=== PATIENT | female | born 1955 | race Asian ===

== ENCOUNTER 2016-12-24 12:21 | Inpatient (IN) | payer OTHER ==
[2016-12-24] MEDS ORDERED: Ondansetron HCl/PF 4 MG/2 ML Vial ONE ×2 (12:29→13:50)
[2016-12-24 12:42] LABS: #Basophils 0.1 thou/uL (0.0-0.2); #Lymphocytes 1.6 thou/uL (1.20-3.40); #Monocytes 0.6 thou/uL (0.11-0.59); #Neutrophils 12.6 thou/uL (1.40-6.50); %Basophils 0.7 % (0.0-1.0); %Eosinophils 0.1 % (0.0-10.0); %Lymphocytes 10.8 % (21.0-51.0); %Monocytes 3.8 % (0.0-10.0); Hematocrit 39.5 % (36.0-47.0); Mean Platelet Volume 5.9 fL (7.4-10.4); Red Blood Cell (RBC) Count 4.62 mill/uL (4.20-5.40); White Blood Cell (WBC) Count 14.9 thou/uL (4.8-10.8)
[2016-12-24 12:58] LABS: ALT (SGPT) 14 U/L (8-55); AST (SGOT) 23 U/L (5-34); Alkaline Phosphatase 70 U/L (40-150); Anion Gap 15 mmol/L (10-20); BUN (Urea Nitrogen) 12 mg/dL (9.8-20.1); Bilirubin, Total 0.5 mg/dL (0.2-1.2); Calc. Creatinine Clearance 0 mL/min (70-130); Calcium 9.2 mg/dL (7.8-10.44); Carbon Dioxide 25 mmol/L (22-29); Chloride 105 mmol/L (98-107); Estimated GFR-MDRD 82; Globulin 2.8 g/dL (2.4-3.5); Lipase 22 U/L (8-78); Protein, Total 7.1 g/dL (6.0-8.3)
[2016-12-24 14:05] LABS: Bilirubin Negative (Negative); Blood, Urine Trace (Negative); Glucose, Urine (Dipstick) Negative (Negative); Ketone, Urine 40 mg/dL (Negative); Nitrite Negative (Negative); Protein, Urine (Dipstick) 30 mg/dL (Neg-Trace); Urobilinogen 0.2 mg/dL (0.2-1.0)
[2016-12-24 14:08] LABS: Bacteria/HPF 2+ HPF (None Seen); RBC/HPF 0-3 HPF (0-3); WBC/HPF 0-3 HPF (0-3)
[2016-12-24 14:10] LABS: Hyaline Casts/LPF 0-3 HYALINE CAST LPF (0-3 Hyaline)
[2016-12-24] MEDS ORDERED: Promethazine HCl 25 MG/ML VIAL ONE (15:03)
[2016-12-24 15:27] LABS: Troponin I Less than 0.010 ng/mL (< 0.028)
--- NOTE | 2016-12-24 16:06 | RAD ---
RADIOGRAPH CHEST 1 VIEW RADIOGRAPH ABDOMEN 2 VIEWS: Date: 12/24/16 HISTORY: 61-year-old female with nausea and emesis with mild diarrhea. FINDINGS: The visualized lung wright are grossly clear. No evidence of pneumothorax or pneumoperitoneum. No ca rdiomegaly. Lateral costophrenic angles are sharp. Ectasia and tortuosity of thoracic aorta. There is a moderate amount of gas and fluid in the stomach, with air fluid level. Otherwise, there i s complete absence of bowel gas. Laminectomy defects at L4-5 and L5-S1. No evidence of organomegaly. IMPRESSION: 1. Complete absence of bowel gas makes it difficult to evaluate the intestines. 2. No acute pulmonary findings. 3. Ectasia and tortuosity of thoracic aorta. 4. Status post lower lumbar laminectomies. RANDOLPH [] POS: [facility]
--- NOTE | 2016-12-24 16:20 | CT ---
CT BRAIN NONCONTRAST: 12/24/16 HISTORY: 61-year-old male with headache. FINDINGS: The ventricles are normal in size and configuration. There is no midline shift or any other mass ef fect. There is no evidence of acute intracranial hemorrhage, large cortical infarct, or extraaxial fluid collection. The [place] matter /white matter differentiation is maintained. The calvarium is in tact. The tympanomastoid cavities, and the upper portions of the paranasal sinuses included in thes e images, are grossly clear. IMPRESSION: Normal. jn [] POS: PATTI
[2016-12-24] MEDS ORDERED: Ondansetron ODT 4 MG TAB SL PRN (16:44)
[2016-12-24] MEDS ORDERED: Ondansetron HCl/PF 4 MG/2 ML Vial IVP PRN ×2 (16:44→17:07)
--- NOTE | 2016-12-24 16:44 | CT ---
EXAM: ABDOMEN CT WITHOUT CONTRAST PELVIC CT WITHOUT CONTRAST 12/24/16 HISTORY: Nausea and vomiting after having coffee creamer. COMPARISON: None. TECHNIQUE: Abdomen and pelvic CT are performed without IV contrast. Coronal reformatted images are submitted f or interpretation. FINDINGS: There are ground glass opacities in the lung bases which are nonspecific. Heart size is normal. No s ignificant pericardial fluid. The visualized aorta has a normal caliber. No periaortic fat stranding . No gastrohepatic, retrocrural or periportal lymphadenopathy. No mesenteric mass, lymphadenopathy, or free air. There is stranding of the abdominal mesentery with a small amount of fluid in both pericolic gutters. Nonspecific left periaortic lymph node. Largest lymph node measures 0.9 x 0.7 cm. Limited evaluation of the solid organs due to lack of IV contrast. No solid organ abnormality. Gallb ladder is unremarkable. Limited evaluation of the alimentary canal due to lack of oral contrast. multiple normal caliber sma ll bowel loops. Ileocecal junction is normal. Normal caliber appendix. Colon is decompressed. Umbilical hernia containing mesenteric fat is noted. Bilaterally, no hydronephrosis, nephrolithiasis or perinephric fat stranding. Bilateral ureters have a normal caliber. No hydroureter, periureteral fat stranding or ureterolithiasis. PELVIC CT: No mass, lymphadenopathy, free air or free fluid. Urinary bladder is unremarkable. Posterior decompr ession changes in the lower lumbar spine are identified. IMPRESSION: 1. Normal caliber appendix. 2. No evidence of nephrolithiasis or obstructive uropathy. 3. Nonspecific stranding of the abdominal mesentery and a trace amount of fluid in both pericol ic gutters. Correlate for mesenteritis. POS: [facility]
[2016-12-24] MEDS ORDERED: Dextrose 5 %-0.45 % NaCl 1,000 ML IV SCH (16:45)
[2016-12-24 16:48] VITALS: BMI 20.1
[2016-12-24 17:46] LABS: Hematocrit 36.9 % (36.0-47.0)
--- NOTE | 2016-12-24 17:46 | HP ---
PRIMARY CARE PHYSICIAN: Destinee Paredes M.D. CHIEF COMPLAINT: Nausea and vomiting. HISTORY OF PRESENT ILLNESS: Mr. Bailey is a pleasant 61-year-old lady who was seen at [facility] following transfer from [facility]. She reports that today morning she went to [facility]. Her was parking the car and she went into [facility]. She then had a cup of coffee. Her had a cup of coffee as well. She reports t hat her cup had more creamer in it. Half an hour later, she started having nausea and vomiting. Sh e reports vomiting at least 10 times. She also reports that couple of times, she had small amount o f blood in the vomitus, this appears to have resolved. She reports irritation in her throat. She a lso reports generalized weakness. She also reports lightheadedness when she stands up and tries to walk. She denies any abdominal pain. She denies any fevers or chills. She denies any sick contact s. The following complete review of systems was negative, unless otherwise mentioned in the HPI or belo w: Constitutional: Weight loss or gain, sense of well-being, ability to conduct usual activities, exer cise tolerance. Skin/Breast: Rash, itching, changes in hair growth or loss, nail changes, breast lumps, tenderness, swelling, nipple discharge. Eyes: Vision, double vision, tearing, blind spots, pain. ENT/Mouth: Headaches (location, time of onset, duration, precipitating factors), vertigo, lighthead edness, injury. Vision, double vision, tearing, blind spots, pain, nose bleeding, colds, obstruction , discharge, dental difficulties, gingival bleeding, dentures, neck stiffness, pain, tenderness, mas ses in thyroid or other areas. Cardiovascular: Precordial pain, substernal distress, palpitations, syncope, dyspnea on exertion, o rthopnea, nocturnal paroxysmal dyspnea, edema, cyanosis, hypertension, heart murmurs, varicosities, phlebitis, claudication. Respiratory: Pain, shortness of breath, wheezing, stridor, cough, hemoptysis, fever or night sweats . Gastrointestinal: Poor appetite, dysphagia, indigestion, abdominal pain, heartburn, eructation, radha sea, vomiting, hematemesis, jaundice, constipation, or diarrhea, abnormal stools (ashley-colored, yady y, bloody, greasy, foul smelling), flatulence, hemorrhoids, recent changes in bowel habits. Genitourinary: Urgency, frequency, dysuria, nocturia, hematuria, polyuria, oliguria, unusual (or ch ruddy in) color of urine, stones, hesitancy, change in size of stream, dribbling, acute retention or incontinence, libido, potency. Musculoskeletal: Pain, swelling, redness or heat of muscles or joints, limitation, of motion, muscu lar weakness, atrophy, cramps. Neurologic/Psychiatric: Convulsions, paralyses, tremor, incoordination, paraesthesias, difficulties with memory of speech, sensory or motor disturbances, or muscular coordination (ataxia, tremor), em otional problems, anxiety, depression, previous psychiatric care, unusual perceptions, hallucination s. Allergy/Immunologic: Skin rash, anemia, bleeding tendency, polydipsia, polyuria, intolerance to hea t or cold. PAST MEDICAL HISTORY: None. PAST SURGICAL HISTORY: Hysterectomy. FAMILY HISTORY: Her mother reportedly had brain surgery in [place]. SOCIAL HISTORY: The patient denies tobacco use, alcohol use or recreational drug use. ALLERGIES: No known drug allergies. CURRENT MEDICATIONS: She appears to be taking calcium supplements but is unable to remember the nam e. PHYSICAL EXAMINATION: GENERAL: On examination, Ms. Bailey is awake and alert, not in acute distress. VITAL SIGNS: Blood pressure is 118/73, pulse is 62. She is breathing at rate of 16 and saturating 97% on room air. She is afebrile. EYES: No scleral icterus, no conjunctival pallor. ENT: Dry mucosal membranes. I examined her oropharynx, there are no oropharyngeal erythema, exudat es or any oral lesions. NECK: Supple, nontender, normal range of movement. Trachea is midline. RESPIRATORY: Accessory muscles of breathing are not active. Chest wall movements are symmetric elmer aterally. LUNGS: Clear to auscultation without wheeze, rhonchi or crepitations. CARDIOVASCULAR: S1 and S2 are heard, regular. Peripheral pulses palpable. No carotid bruit, no pe ricardial rub. ABDOMEN: Soft, nontender, bowel sounds are heard, no hepatomegaly, no splenomegaly. NEUROLOGIC: Cranial nerves II-XII intact. Deep tendon reflexes are 2+. MUSCULOSKELETAL: Power is 5/5 in all 4 extremities. Normal range of movement at all major extremit y joints. LYMPHATIC: No cervical lymphadenopathy. SKIN: No rashes or subcutaneous nodules. PSYCHIATRIC: Normal mood, normal affect, patient is oriented to time, place, and person. LABORATORY DATA: Ms. Bailey's labs and investigations were reviewed. She has leukocytosis with 14, 900 white cells, of which 84.5% are neutrophils, normal hemoglobin, normal platelet count, unremarka ble comprehensive metabolic profile, normal lipase and normal troponin I. Urinalysis is positive fo r protein, ketones, trace amount of blood. She does have slightly elevated random fasting glucose l evel of 131. ASSESSMENT AND PLAN: Ms. Bailey is a pleasant 61-year-old lady who was seen at [facility]. Her problem list includes: 1. Nausea and vomiting: Etiology unclear, appears to have had some form of gastric irritation afte r drinking coffee with cream. She has improved clinically. She will be admitted to the hospital on observation status and observed overnight. She will receive p.r.n., Zofran. She will be started o n clear fluid diet for now. 2. Lightheadedness: Likely secondary to dehydration. We will check orthostatic vitals, will hydra te with intravenous fluids and observe. 3. Leukocytosis: No sign of infection at this time. We will check chest x-ray to rule out any asp iration. We will recheck CBC. 4. Blood in vomitus: Small amount, appears to have resolved, likely from pharyngeal irritation. W e will follow serial hemoglobins. If no recurrence, and if hemoglobin remains stable, she can follo w up with her primary care physician. 5. Protein and ketones in urine: This will probably need to be looked it as outpatient. Her blood sugar is slightly elevated, but she has normal bicarbonate and a normal anion gap. Many thanks for allowing me to participate in your patient's care. Please feel free to contact me w ith any questions or concerns. LEVEL OF RISK: Moderate. LEVEL OF COMPLEXITY: Moderate.
[2016-12-24] MEDS: Sodium Chloride 0.9% 1,000 ML IV SCH (17:49)
[2016-12-25 01:27] LABS: Hematocrit 36.4 % (36.0-47.0)
[2016-12-25] MEDS: Sodium Chloride 0.9% 1,000 ML IV SCH (04:02)
[2016-12-25 05:27] LABS: #Eosinphils 0.1 thou/uL (0.0-0.7); #Lymphocytes 2.6 thou/uL (1.20-3.40); #Monocytes 0.5 thou/uL (0.11-0.59); #Neutrophils 4.2 thou/uL (1.40-6.50); %Basophils 0.6 % (0.0-1.0); %Eosinophils 0.7 % (0.0-10.0); %Monocytes 6.9 % (0.0-10.0); Hematocrit 36.1 % (36.0-47.0); Mean Platelet Volume 6.4 fL (7.4-10.4); White Blood Cell (WBC) Count 7.3 thou/uL (4.8-10.8)
[2016-12-25 05:59] LABS: Anion Gap 8 mmol/L (10-20); BUN (Urea Nitrogen) 7 mg/dL (9.8-20.1); Calc. Creatinine Clearance 75 mL/min (70-130); Calcium 8.5 mg/dL (7.8-10.44); Carbon Dioxide 27 mmol/L (22-29); Chloride 111 mmol/L (98-107); Estimated GFR-MDRD Greater than 90
[2016-12-25 07:49] VITALS: TEMP 98.1
[2016-12-25] MEDS ORDERED: Enoxaparin Sodium 40 MG/0.4 ML SYRINGE SC SCH (09:00)
[2016-12-25] MEDS ORDERED: Meclizine HCl 25 MG TAB PO PRN (09:03)
[2016-12-25] MEDS ORDERED: Ondansetron ODT 4 MG TAB PO PRN (09:04)
[2016-12-25] MEDS ORDERED: Calcium Carbonate 500 MG ChewTAB PO PRN (09:04)
[2016-12-25] MEDS ORDERED: Senokot 8.6 MG TAB PO PRN (09:04)
[2016-12-25] MEDS ORDERED: Mag-Al 1200 mg/1200 mg/30 ML UDCUP PO PRN (09:04)
[2016-12-25] MEDS ORDERED: Acetaminophen 325 MG TAB PO PRN (09:04)
[2016-12-25 09:24] LABS: Magnesium 1.9 mg/dL (1.6-2.6)
[2016-12-25] MEDS ORDERED: cefTRIAXone\\ROCEPHIN 1 GM in Sodium Chloride 0.9% 100 ML IVPB SCH (10:00)
[2016-12-25] MEDS ORDERED: metroNIDAZOLE 500 MG in Premix Bag 1 BAG IVPB SCH (11:00)
[2016-12-25 11:56] VITALS: BP 114/68
--- NOTE | 2016-12-25 11:57 | CON ---
DATE OF CONSULTATION: 12/25/2016 HISTORY OF PRESENT ILLNESS: The patient is a 61-year-old female, who was in her normal state of health until yesterday when she developed severe nausea and vomiting after drinking a cup of coff ee. She reports she put a large amount of creamer in it and then within 10 minutes a large amount o f vomiting. Her drank some coffee as well, but did not have any problems. She is feeling w ell now. She is hungry. She has had no change in her bowel movement. She did not have any abdomin al pain. No fever or chills. No recent weight loss. No prior episodes of nausea and vomiting. PAST MEDICAL HISTORY: None. PAST SURGICAL HISTORY: Includes a hysterectomy. MEDICATIONS: Just [id number] medications. SOCIAL HISTORY: She does not smoke. Drinks occasional wine. ALLERGIES: No known medical allergies. FAMILY HISTORY: Negative for GI or liver disease. REVIEW OF SYSTEMS: Ten systems were reviewed and were negative except for above. PHYSICAL EXAMINATION: VITAL SIGNS: Shows a temperature 98.1, pulse 55, respiratory rate 16, blood pressure 120/65. HEENT: Unremarkable. NECK: Supple. CHEST: Clear. CARDIOVASCULAR: Regular rate and rhythm without murmurs or gallops. ABDOMEN: Soft, nontender without organomegaly or masses. RECTAL: Deferred. EXTREMITIES: Normal. NEUROLOGIC: Nonfocal. LABORATORY DATA: Shows a hemoglobin 11.9, hematocrit 36.1. Laboratory on admission was normal exce pt for a glucose of 130. Urinalysis shows 40 ketones, otherwise normal. Acute abdominal series jack ws no abnormalities. Abdominal pelvic CT without contrast showed nonspecific stranding in the abdom inal mesentery and trace amount of fluid in both paracolic gutters. ASSESSMENT: Acute onset nausea, vomiting -- resolved, suspect food poisoning. RECOMMENDATIONS: 1. Feeding trial for lunch. 2. If the patient tolerates feeding trial, she could be discharged.
--- NOTE | 2016-12-25 16:31 | DIS ---
DATE OF DISCHARGE: 12/25/2016 DISCHARGE DISPOSITION: Home. FOLLOWUP: Follow up with primary care physician, Dr. Destinee Paredes in 1 week. The patient was seen and examined on the day of discharge. Vital signs were reviewed. Nausea and v omiting has resolved. The patient is ambulating in the hallway. She tolerated regular diet. INPATIENT DRIER AND EVAPORATOR OPERATOR: Gastroenterology, Dr. Reinaldo Cerna. DISCHARGE MEDICATIONS: 1. Meclizine as needed. 2. Protonix 40 mg daily. 3. Vitamin D3 of 1000 units daily. ALLERGIES: No known drug allergies. BRIEF HOSPITAL COURSE: Patient is a 61-year-old female who presented to the emergency room with kari den onset of nausea and vomiting. Abdominal CT was consistent with nonspecific stranding of the abd ominal mesentery and trace amount of fluid in both the paracolic gutters. There was a question of m esenteritis. CT scan of the brain was negative for acute findings. She was started on IV fluids. Due to some questionable vertigo, she also received meclizine that also helped with her symptoms. S he was able to tolerate regular diet. The patient was evaluated by Gastroenterology and has been cl eared for discharge. FINAL DIAGNOSES: 1. Intractable nausea and vomiting of unclear etiology, suspected peripheral vertigo. 2. Leukocytosis unlikely to be infectious. 3. Dehydration. 4. Questionable mesenteritis on the CT, less likely per GI, abdominal exam is benign. Plan of care was discussed with the patient and the family at the bedside. They stated ashlie artis
[2016-12-25] MEDS ORDERED: Famotidine 20 MG TAB PO SCH (21:00)
== END 2016-12-25 15:50 | disposition home or self-care (01) | DRG 149 ==
LOC: SCSER 12:21 → 2SW 16:35 → OBSVTOIN 16:35
PROVIDERS: ADMIT Internal Medicine; ATTEND Internal Medicine
DX: H81.399 Other peripheral vertigo, unspecified ear (principal); E86.0 Dehydration; R11.2 Nausea with vomiting, unspecified
CPT/HCPCS: 36415; 70450; 74022; 74176; 80048; 80053; 81003; 81015; 82553; 83690; 83735; 84100; 84484; 85025; 93005; 96361; 96372; 96374; 96376; J0696; J2405; J2550; J7050

== ENCOUNTER 2019-12-31 13:50 | Outpatient (CLI) | payer OTHER, SELFPAY ==
--- NOTE | 2020-01-07 13:17 | MMO ---
Bilateral MAMMO Bilat Screen DDI+MIYA. CLINICAL HISTORY: Patient is 64 years old and is seen for screening. The patient has no family history of breast cancer. The patient has no personal history of cancer. VIEWS: The views performed were: bilateral craniocaudal with tomosynthesis and bilateral mediolateral oblique with tomosynthesis. FILMS COMPARED: The present examination has been compared to prior imaging studies performed at [facility] on 11/22/2016, and at [facility] on 09/30/2015 and 02/12/2019. This study has been interpreted with the assistance of computer-aided detection. MAMMOGRAM FINDINGS: The breasts are extremely dense, which may lower the sensitivity of mammography. There are no suspicious masses, suspicious calcifications, or new areas of architectural distortion. IMPRESSION: THERE IS NO MAMMOGRAPHIC EVIDENCE OF MALIGNANCY. A ROUTINE FOLLOW-UP MAMMOGRAM IN 1 YEAR IS RECOMMENDED. THE RESULTS OF THIS EXAM WERE SENT TO THE PATIENT. ACR BI-RADS Category 1 - Negative MAMMOGRAPHY NOTE: 1. A negative mammogram report should not delay a biopsy if a dominant of clinically suspicious mass is present. 2. Approximately 10% to 15% of breast cancers are not detected by mammography. 3. Adenosis and dense breasts may obscure an underlying neoplasm. Reported by: Davonte NICHOLS Electonically Signed: [id number]
== END 2019-12-31 13:51 | disposition home or self-care (01) ==
LOC: BICMAMMO 13:50
PROVIDERS: ATTEND Internal Medicine
DX: Z12.31 Encounter for screening mammogram for malignant neoplasm of breast (principal)
CPT/HCPCS: 77063; 77067

== ENCOUNTER 2024-01-01 07:32 | Outpatient (CLI) | payer MEDICARE | END 2024-01-01 07:33 | disposition home or self-care (01) | LOC: SCSRAD 07:32 | PROVIDERS: ATTEND Internal Medicine | DX: R05.9 Cough, unspecified (principal); R09.89 Other specified symptoms and signs involving the circulatory and respiratory systems; E78.5 Hyperlipidemia, unspecified | CPT/HCPCS: 36415; 71046; 80053; 80061 ==